=== PATIENT | male | born 1965 | race Caucasian/White ===

== ENCOUNTER 2019-02-16 06:27 | Inpatient (IN) | payer OTHER ==
[~2019-02-16 06:27] MED LIST: BUPIVACAINE 0.5% (SDV) 30 ML, morphine SULFATE (PF) 8 MG, EPINEPHrine 0.3 MG, KETOROLAC... IRR; TRANEXAMIC ACID 1GM/100ML(PMX) 100 ML IVPB
[2019-02-16] MEDS ORDERED: BUPIVACAINE 0.5%/EPI (SDV) 30 ML INJ (07:12)
[2019-02-16] MEDS: DEXAMETHASONE 1 MG TAB PO (07:34)
[2019-02-16] MEDS: VANCOMYCIN 1 GM (PMX) 250 ML IVPB (07:35)
[2019-02-16] MEDS: GABAPENTIN 300 MG CAP PO ×2 (07:35→20:12)
[2019-02-16 07:39] LABS: ADD MAN DIFF? NO
[2019-02-16 07:43] LABS: WHITE BLOOD COUNT 6.5 10^3/ul (4.8-10.8)
[2019-02-16 07:43] LABS: BASOPHIL # 0.1 10^3/ul (0.0-0.1); BASOPHILS % 1.2 % (0.0-2.0); EOSINOPHILS # 0.2 10^3/ul (0.0-0.5); EOSINOPHILS % 2.3 % (0.0-7.0); HEMATOCRIT 41.5 % (42.0-52.0); LYMPHOCYTES # 1.8 10^3/ul (0.8-2.9); LYMPHOCYTES % 28.2 % (15.0-51.0); MEAN CORPUSCULAR HGB CONC 36.1 g/dl (32.0-37.0); MEAN CORPUSCULAR VOLUME 85.7 fl (82.0-101.0); MEAN PLATELET VOLUME 10.1 fl (7.4-10.4); MONOCYTE # 0.6 10^3/ul (0.3-0.9); MONOCYTES % 8.6 % (0.0-11.0); NEUTROPHIL # 3.8 10^3/ul (1.6-7.5); NEUTROPHILS % 57.9 % (39.0-77.0); PLATELET COUNT 231 10^3/UL (140-415); RED BLOOD COUNT 4.84 10^6/ul (4.70-6.10)
[2019-02-16] MEDS ORDERED: PROPOFOL 20 ML ×2 (07:55→09:54)
[2019-02-16] MEDS ORDERED: FENTAnyl 50 MCG/ML VIAL (07:55)
[2019-02-16] MEDS ORDERED: METOCLOPRAMIDE 10 MG INJ (07:56)
[2019-02-16] MEDS ORDERED: MIDAZOLAM 1 MG/ML 2 ML INJ (07:56)
[2019-02-16] MEDS ORDERED: ROPIVACAINE 0.2% 20 ML VIAL (07:56)
[2019-02-16] MEDS ORDERED: ONDANSETRON 4 MG INJ (07:56)
[2019-02-16] MEDS ORDERED: ROPIVACAINE 0.5 % 30 ML VIAL (07:57)
[2019-02-16] MEDS: TRANEXAMIC ACID 1GM/100ML(PMX) 100 ML (08:25)
[2019-02-16] MEDS ORDERED: CEFAZOLIN 1 GM INJ (08:31)
[2019-02-16] MEDS ORDERED: HYDROmorphONE 2 MG/ML SYG (08:31)
[2019-02-16] MEDS ORDERED: hydrALAzine 20 MG INJ (08:44)
[2019-02-16] MEDS ORDERED: DIPHENHYDRAMINE 50 MG INJ IV ×2 (09:00→10:00)
[2019-02-16] MEDS ORDERED: HYDROmorphONE 1 MG/5 ML IV SYRINGE IV ×3 (09:00)
[2019-02-16] MEDS ORDERED: ONDANSETRON 4 MG INJ IV ×2 (09:00→10:00)
[2019-02-16] MEDS ORDERED: KETOROLAC 30 MG INJ IV (09:00)
[2019-02-16] MEDS ORDERED: MEPERIDINE 25 MG INJ IV (09:00)
[2019-02-16] MEDS ORDERED: FENTAnyl 50 MCG/ML VIAL IV ×3 (09:00)
[2019-02-16] MEDS ORDERED: hydrALAzine 20 MG INJ IV (09:00)
[2019-02-16] MEDS: POLYMYXIN/BACITRACIN 1L IRRIG (09:16)
[2019-02-16] MEDS: CA CHLORIDE 10% 10 ML SYRINGE (09:17)
[2019-02-16] MEDS: THROMBIN 5000 UNIT VIAL (09:17)
[2019-02-16] MEDS ORDERED: TRANEXAMIC ACID 1GM/100ML(PMX) 100 ML (09:54)
[2019-02-16] MEDS ORDERED: oxyCODONE 5 MG TAB PO ×2 (10:00)
[2019-02-16] MEDS ORDERED: ZOLPIDEM 5 MG TAB PO (10:00)
[2019-02-16] MEDS ORDERED: HYDROmorphONE 1 MG/ML SYG IV (10:00)
[2019-02-16] MEDS ORDERED: NACL 0.9% 3 ML SYG IV (10:00)
[2019-02-16] MEDS ORDERED: LOPERAMIDE 2 MG CAP PO (10:00)
[2019-02-16] MEDS ORDERED: MAGNESIUM HYDROXIDE 30ML CUP PO (10:00)
[2019-02-16] MEDS ORDERED: KETOROLAC 30 MG INJ (10:16)
[2019-02-16] MEDS: TRANEXAMIC ACID 1GM/100ML(PMX) 100 ML IVPB (11:12)
[2019-02-16] MEDS: LABETALOL HCL 20MG INJ IV (11:29)
[2019-02-16] MEDS: ACETAMINOPHEN 500 MG TAB PO ×3 (13:26→23:54)
[2019-02-16] MEDS: DEXAMETHASONE 2 MG TAB PO ×3 (13:26→23:54)
[2019-02-16] MEDS: KETOROLAC 15 MG INJ IV ×2 (13:26→21:55)
[2019-02-16] MEDS: oxyCODONE 5 MG TAB PO (17:03)
[2019-02-16] MEDS: metFORMIN 500 MG TAB PO (17:56)
[2019-02-16] MEDS ORDERED: VANCOMYCIN 500 MG (PMX) 100 ML IVPB (18:00)
[2019-02-16] MEDS: VANCOMYCIN 500 MG (PMX) 100 ML IVPB (20:10)
[2019-02-16] MEDS: SENNA/DOCUSATE NA (8.6MG/50MG) TAB PO (20:12)
[2019-02-17] MEDS: ACETAMINOPHEN 500 MG TAB PO ×2 (05:48→12:09)
[2019-02-17] MEDS: DEXAMETHASONE 2 MG TAB PO (05:48)
[2019-02-17] MEDS: metFORMIN 500 MG TAB PO (08:45)
[2019-02-17] MEDS: HYDROCHLOROTHIAZIDE 25 MG TAB PO (08:45)
[2019-02-17] MEDS: SENNA/DOCUSATE NA (8.6MG/50MG) TAB PO (08:45)
[2019-02-17] MEDS: AMLODIPINE 5 MG TAB PO (08:46)
[2019-02-17] MEDS: VANCOMYCIN 500 MG (PMX) 100 ML IVPB (08:46)
[2019-02-17] MEDS: oxyCODONE 5 MG TAB PO (12:58)
== END 2019-02-17 13:25 | disposition home or self-care (01) | DRG 483 ==
LOC: REC 06:27 → MS1 12:27
PROVIDERS: Orthopaedic Surgery
PROC: 0RRK00Z Replacement of Left Shoulder Joint with Reverse Ball and Socket Synthetic Substitute, Open Approach (ICD-10-PCS; principal; 2019-02-16 08:30)
PROC: 0PBB0ZZ Excision of Left Clavicle, Open Approach (ICD-10-PCS; 2019-02-16 08:30)
DX: M19.212 Secondary osteoarthritis, left shoulder (principal); I10 Essential (primary) hypertension; E11.9 Type 2 diabetes mellitus without complications
CPT/HCPCS: 73030; 82962; 85025; 86999; 88304; 88311; 97161